=== PATIENT | male | born 1970 | race Caucasian/White ===

== ENCOUNTER 2023-07-05 15:35 | Outpatient (CLI) | payer MEDICARE, SELFPAY ==
--- NOTE | 2023-07-05 16:08 | XRR_ITS ---
PROCEDURE INFORMATION: Exam: XR Right Hip Exam date and time: 07/05/2023 4:13 PM Age: 52 years old Clinical indication: Hip pain; Right hip; Patient HX: --ms and ms pain, pain down the right leg for 3 years; Additional info: Vertebrogenic low back pain TECHNIQUE: Imaging protocol: Radiologic exam of the right hip. Views: 1 view hip with pelvis when performed. COMPARISON: CR XR lumbar spine f/e only [id number] 07/05/2023 4:13 PM FINDINGS: Bones/joints: No fracture or acute osseous abnormality is seen about the right hip. Hip joint appears maintained. No abnormal soft tissue calcification is seen about the hip joint. Soft tissues: No significant soft tissue abnormality. XR/XR hip RT 2-3V wo/w pel* [id number] IMPRESSION: No acute findings right hip.
--- NOTE | 2023-07-05 16:09 | XRR_ITS ---
PROCEDURE INFORMATION: Exam: XR Lumbosacral Spine Exam date and time: 07/05/2023 4:13 PM Age: 52 years old Clinical indication: Low back pain; Patient HX: --ms and ms pain, pain down the right leg for 3 years; Additional info: Right hip pain TECHNIQUE: Imaging protocol: Radiologic exam of the lumbosacral spine. Views: 2 or 3 views. COMPARISON: CR XR hip RT 2-3V wo/w pel* [id number] 07/05/2023 4:13 PM FINDINGS: Bones/joints: Lateral neutral, flexion, and extension views were obtained. Lumbar vertebral body heights appear maintained. No significant or prominent disc space narrowing, with mild spondylotic change anterior L1 through L3 vertebra and mild spondylotic change lower lumbar facets. Suggestion some limited range of motion with flexion. No subluxation is seen on the neutral, flexion, or extension lateral views. No compression deformity or acute osseous abnormality. Soft tissues: No significant soft tissue abnormality. XR/XR lumbar spine f/e only [id number] IMPRESSION: Alignment appears unremarkable on the lateral neutral, flexion, and extension views, without subluxation. Mild spondylotic change without significant degenerative disc disease.
== END 2023-07-05 15:36 | disposition home or self-care (01) ==
PROVIDERS: PCP Internal Medicine; Visit Provider Nurse Practitioner
DX: M47.816 Spondylosis without myelopathy or radiculopathy, lumbar region (principal); M25.551 Pain in right hip; M54.51 Vertebrogenic low back pain
CPT/HCPCS: 72120; 73502